=== PATIENT | male | born 1960 | race Caucasian/White ===

== ENCOUNTER 2017-01-12 11:11 | Inpatient (IN) | payer MEDICARE, MEDICAID ==
[~2017-01-12] VITALS: Ht 162.6 cm; Wt 160.3 kg
--- NOTE | ~2017-01-12 | ECH ---
Transthoracic Echocardiography Report (TTE) Demographics Patient Name PATO REDDY Date of Study 01/13/2017 Patient Number [id number] Visit Number [id number] Date of 1960 Room Number 411 Accession Number [id number] Gender Male Age 56 year(s) Referring Jan Mancilla MD Bed And Breakfast Innkeeper Marian Nieto [facility] Physician Nicolette Leslie MD Physician Interpreting Damian Sanchez Stationary Equipment Mechanic Physician MD Supervising Ordering Physician Cornelio Quintero MD, MD/P Nurse Stress Line Servicer Conclusions Summary Technically difficult exam, Definity utilized to enhance images. The estimated left ventricular ejection fraction is 60%. Normal wall motion. Mild to moderate left ventricular hypertrophy. Diastolic assessment reveals Grade I diastolic dysfunction. Right ventricle best seen utilizing Definity, appears normal size and function. The left atrium is mildly dilated by LA volume index measurement. Procedure Type of Study TTE procedure:Echo Complete w Contrast SF. Procedure Date Date: 01/13/2017 Start: 09:11 AM Technical Quality: Limited visualization due to body habitus. Indications:Shortness of breath, Congestive heart failure, Hypertension and edema. Appropriate Use Criteria: 9 Contrast Medium: Definity. Amount - 2 ml Height: 64 inches Weight: 360 pounds BSA: 2.51 m Rhythm: Within normal limits HR: 94 bpm BP: 157/64 mmHg M-Mode/2D Measurements LV Diastolic Dimension: 3.98 cm LV Systolic Dimension: 3.11 cm LV Septum Diastolic: 1.38 cm LV PW Diastolic: 1.25 cm AO Root Dimension: 2.89 cm Cardiac Output: 7.8 l/min LA Dimension: 4.14 cm Cardiac Index: 3.11 l/min*m LA volume index: 40 ml/m LVOT: 2.84 cm RV Base: 3.7 cm LVOT VTI: 13.11 cm RV Mid: 2.8 cm LV Stroke volume: 83.01 ml RV Length: 8.8 cm LV Stroke volume index: 33.07 ml/m Doppler Measurements AV Peak Velocity: 1.49 m/s MV Peak E-Wave: 0.63 m/s AV Peak Gradient: 8.88 mmHg MV Peak A-Wave: 0.84 m/s AV Mean Gradient: 5.24 mmHg MV E/A Ratio: 0.74 LVOT Peak Velocity: 0.72 m/s MV P1/2t: 50.9 msec AV Area (Continuity):3.18 cm MV Deceleration Time: 175.7 msec MV Area (PHT): 4.32 cm PV Peak Velocity: 1.38 m/s E' Septal Velocity: 0.09 m/s PV Peak Gradient: 7.63 mmHg A' Septal Velocity: 0.11 m/s RA Area: 13 cm Findings Left Ventricle The left ventricle is normal in size . Mild to moderate left ventricular hypertrophy. Diastolic assessment reveals Grade I diastolic dysfunction. Right Ventricle Right ventricle best seen utilizing Definity, appears normal size and function. Left Atrium The left atrium is mildly dilated by LA volume index measurement. There is no evidence of patent foramen ovale or atrial septal defect by color Doppler. Right Atrium Normal right atrial size. Mitral Valve Normal mitral valve structure and function. Aortic Valve The aortic valve was not well imaged. Tricuspid Valve Normal tricuspid valve structure and function. Pulmonic Valve The pulmonic valve is not well visualized. Pericardial Effusion No evidence of pericardial effusion. Miscellaneous Visualized portions of the aortic root and ascending aorta appear normal in size. Pleural Effusion No evidence of pleural effusion. Contractility Score LV regional wall motion:(0-Non visualized 1-Normal 2-Hypokinesis 3-Akinesis 4-Dyskinesis 5-Aneurysm) Signature
--- NOTE | 2017-01-15 16:22 | HP ---
ADMIT: 01/12/2017 RM/LOC: 411 [facility] MR#: [id number] [address] PATO REDDY [address] [place] [id number] History and Physical SEX: M AGE: 56 : 1960 DATE OF SERVICE: CHIEF COMPLAINT: Shortness of breath. HISTORY OF PRESENT ILLNESS: This is a 56-year-old gentleman with history of depression and bipolar disorder, who initially presented with shortness of breath. He says this has been going on for two months and it has been worsening, so he had to present to the emergency room today for evaluation. He says it just feels tight in his chest when he tries to breathe. Other past history includes hypertension. He was worked up for acute coronary syndrome. He had mildly elevated troponin. EKG showed no acute ischemic changes. The patient is grossly edematous and says this has been about this way for the last year and a half. He says that his knee started hurting when he walked and was more active, so he stopped being active and therefore he says he has gained a lot of weight and has become more short of breath since that time. He has usually seen Dr. Roblero in the past; obviously, he has not seen him recently. He has some associated wheezing, rhonchi, orthopnea, and exertional shortness of breath as well. PAST MEDICAL HISTORY: Includes; 1. Hypertension. 2. Chronic yeast infection. 3. Bipolar disorder. 4. Edema. 5. CHF. 6. Insomnia. 7. Depression. 8. Morbid obesity. 9. Obstructive sleep apnea, not on CPAP. 10.Chronic arthritis. 11.Chronic intertrigo. MEDICATIONS: Medications at home were; 1. Amlodipine 5 mg daily. 2. Diflucan 150 mg weekly. 3. Nystatin powder. 4. Ramipril 20 mg daily. 5. Bupropion XL 150 mg daily. 6. Lasix 40 mg daily. 7. Mobic 7.5 mg b.i.d. 8. Potassium 20 mEq daily. 9. Trazodone 100 mg daily. FAMILY HISTORY: Significant for father who at 57 of heart disease and hypertension. He has four brothers and one sister. SOCIAL HISTORY: He has never smoked. No drug use. He works at [employer]. Apparently, he has lived at a hotel recently, and apparently before that was in assisted living. 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 ADMIT: 01/12/2017 RM/LOC: 411 [facility] MR#: [id number] [address] BARRY PATO Mariama [address] [place] [address] History and Physical SEX: M AGE: 56 : 1960 REVIEW OF SYSTEMS: He has edema, and was noted to be hypoxic at an outside facility today, so he was sent to the emergency room by [facility]. Other complete review of systems obtained and negative. PHYSICAL EXAMINATION: VITAL SIGNS: Pulse is 72, blood pressure 160s over 70s, oxygen saturation 98% on 2 L of oxygen by nasal cannula. GENERAL: This is overweight-appearing, 56-year-old gentleman. He is in no apparent distress. He is alert. He is oriented. HEENT: Pupils are equal, round, and reactive to light and accommodation. Extraocular muscles are intact. Throat is clear. Head is normocephalic and atraumatic. NECK: Short, but supple. Trachea midline. Thyroid not palpable. HEART: Diminished, but regular bilaterally. LUNGS: Diminished, but clear bilaterally. ABDOMEN: Grossly protuberant, soft. He has edema into his abdomen. EXTREMITIES: Lower extremities have 3+ pitting edema; however, 4 come up into the thighs and abdomen area. He is grossly. overweight and has difficult time moving. He is just sitting on a chair. SKIN: There is evidence of intertrigo. NEURO: Cranial nerves are intact. He can move all extremities equally bilaterally. LABORATORY AND X-RAY DATA: He has a mildly elevated troponin. We will follow that up and monitor it closely. We will also see how he responds to the IV Lasix that was given. He has hyperglycemia, we will check an A1c. We will also check a TSH. I think a lot of symptoms are related to fluid overload. At this point, we will get an echo and a PT and OT, and we will get a better evaluation on what is going on. We will have him follow up with Dr. Will as he is the one on city call right now during this hospitalization. Nir Grimes MD/ aurelio JOB #: [id number] CC: Nir Grimes, Attending Physician Nir Grimes, Family Physician
[2017-01-15] MEDS ORDERED: NORVASC5 MG PO (20:29)
[2017-01-15] MEDS ORDERED: DIFLUCAN DPS150 MG PO (20:30)
[2017-01-15] MEDS ORDERED: ALTACE DPS10 MG PO (20:30)
[2017-01-15] MEDS ORDERED: MYCOSTATIN PWD15 GM TP (20:30)
[2017-01-15] MEDS ORDERED: LASIX DPS40 MG PO (20:31)
[2017-01-15] MEDS ORDERED: DESYREL DPS100 MG PO (20:31)
[2017-01-15] MEDS ORDERED: WELLBUTRIN SR150 M1 PO (20:31)
[2017-01-15] MEDS ORDERED: KLOR-CON M2020 ME1 PO (20:31)
[2017-01-15] MEDS ORDERED: GLUCOPHAGE-DPS500 MG PO (20:32)
--- NOTE | 2017-01-17 08:56 | ER ---
ADMIT: 01/12/2017 RM/LOC: 411 [facility] MR#: [id number] [id number] [address] PATO REDDY [address] [place] [id number] Emergency Room Report SEX: M AGE: 56 : 1960 DATE: 01/12/2017 TIME: 1111 hours. Please refer to my T-sheet for complete H and P. Briefly, the patient is a 56-year-old, who was coming over because of dyspnea on exertion and shortness of breath. It has been going on for months, but now he can hardly walk at all and he gets short of breath. He was also experiencing some chest discomfort. He does not have any at this time. He was sent from the clinic to see us. He does not smoke. PHYSICAL EXAMINATION: VITAL SIGNS: Blood pressure 154/78, pulse 94, respirations 18, temp 98.9, and sat 90%. GENERAL: No acute distress. HEENT: Grossly normal. LUNGS: Slightly coarse, but very minimal. HEART: Regular. ABDOMEN: Obese, soft. EXTREMITIES: He has 3+ edema. NEUROLOGIC: Alert and oriented. Nonfocal. EMERGENCY DEPARTMENT COURSE: His EKG was sinus rhythm, rate 85, no changes. Chest CT revealed no PE. CBC normal except hemoglobin 13.4. Chemistries normal except glucose 101, lactate was 1.2. CK is 138, CK-MB 4.7, and troponin was 0.067. I gave him 4 aspirin. He was pain free, stable. We did send one blood culture and I talked to Dr. Will, who will admit. ASSESSMENT: 1. Chest pain. 2. Increased troponin. 3. Peripheral edema. 4. Obesity. PLAN: Admit to the hospital. Chance Munoz MD/ aurelio JOB #: [id number] CC: Nir Grimes MD, Attending Physician Nir Grimes MD, Family Physician
--- NOTE | 2017-01-22 13:01 | DS ---
ADMIT: 01/12/2017 RM/LOC: 411 [facility] MR#: [id number] [id number] [address] PATO REDDY [address] [address] Discharge Summary SEX: M AGE: 56 : 1960 ADMISSION DATE: 01/12/2017 DISCHARGE DATE: 01/15/2017 CONSULTATIONS: None. FINAL DIAGNOSES: 1. Acute on chronic diastolic heart failure. 2. Medical nonadherence. 3. Morbid obesity. 4. New diagnosis of diabetes. 5. Equivocal troponin secondary to CHF (congestive heart failure) exacerbation. REASON FOR ADMISSION: Please H and P. However briefly, admitted for hypoxia and edema and equivocal troponin. HOSPITAL COURSE: Admitted to the service of [facility] under the care of myself, Tay Will MD. Received appropriate goal-directed therapy with aggressive diuresis. He has dramatic improvement of his hypoxia. He has improvement of his mobilities. His laboratories do remain stable. He received diabetic education. He is discharged to home with encouragement that he needs to take his medications as prescribed and that he needs to take his new medications of metformin for new diagnosis of diabetes. He is encouraged to follow up with his primary care doctor, Dr. Traore, as well. DISPOSITION: Home. DISCHARGE CONDITION: Stable. DISCHARGE MEDICATIONS: See discharge medication reconciliation, reviewed and accurate. DISCHARGE INSTRUCTIONS: Discharged to home. Please take your medications as prescribed. New medication of metformin. He is given diabetic education. Encouraged to make good diet choices. He will follow up with Dr. Traore in one weeks' time with repeat laboratories. Discussed the plan with the patient who expressed understanding, was in agreement and had no further questions. Thirty minutes was spent on discharge activity of this patient. Tay Will MD/ kiera JOB #: [id number] CC: Nir Grimes MD, Attending Physician ADMIT: 01/12/2017 RM/LOC: 411 [facility] MR#: [id number] [id number] [address] PATO REDDY [address] [place] [address] Discharge Summary SEX: M AGE: 56 : 1960 Nir Grimes MD, Family Physician
== END 2017-01-15 12:57 | disposition home or self-care (01) | DRG 291 ==
LOC: ER 11:11 → 4PCU 13:00
PROVIDERS: ADMIT Internal Medicine
DX: I11.0 Hypertensive heart disease with heart failure (principal); J96.91 Respiratory failure, unspecified with hypoxia; Z68.44 Body mass index [BMI] 60.0-69.9, adult; I50.33 Acute on chronic diastolic (congestive) heart failure; R60.9 Edema, unspecified; F31.9 Bipolar disorder, unspecified; G47.00 Insomnia, unspecified; E66.01 Morbid (severe) obesity due to excess calories; E11.9 Type 2 diabetes mellitus without complications; G47.33 Obstructive sleep apnea (adult) (pediatric); M19.90 Unspecified osteoarthritis, unspecified site; L30.4 Erythema intertrigo; R09.02 Hypoxemia; R73.9 Hyperglycemia, unspecified; Z91.19 Patient's noncompliance with other medical treatment and regimen